=== PATIENT | male | born 2000 | race Caucasian/White ===

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

== ENCOUNTER 2018-08-11 20:59 | Emergency (ER) | END 2018-08-12 01:05 | disposition home or self-care (01) ==

== ENCOUNTER 2018-09-06 22:25 | Emergency (ER) | END 2018-09-07 03:37 | disposition home or self-care (01) ==